=== PATIENT | male | born 1980 | race Two or more races ===

== ENCOUNTER 2017-11-24 01:47 | Emergency (ER) | payer SELFPAY ==
[2017-11-24] MEDS ORDERED: Ibuprofen TAB* 800 MG PO ONE (02:38)
[2017-11-24] MEDS ORDERED: Acetaminophen TAB* 325 MG PO ONE (02:38)
[2017-11-24] MEDS ORDERED: Oseltamivir CAP* 75 MG CAP PO ONE (03:21)
[2017-11-24] MEDS ORDERED: Oseltamivir CAP* 75 MG CAP ONE (03:22)
[2017-11-24 03:40] VITALS: BP 147/73
--- NOTE | 2017-11-24 06:16 | ED ---
Wes Archuleta Jason, scribed for Mariely Pickering MD on 11/24/17 at 0422 . Influenza-Like Illness - HPI Summary HPI Summary: This patient is a 37 year old M presenting to [facility] with a chief complaint of flu-like sx since 1 day ago. The patient rates the pain 10/10 in severity. Symptoms aggravated by nothing. Symptoms alleviated by nothing. Patient reports cough, fever, headache and myalgia. The patient includes that he took Tylenol. - History of Current Complaint Chief Complaint: EDFluSymptoms Time Seen by Provider: 11/24/17 02:17 Hx Obtained From: Patient Onset/Duration: Gradual Onset, Lasting Days - 1 day, Still Present Associated Signs & Symptoms: Fever, Myalgia, Cough, Headache - Allergy/Home Medications Allergies/Adverse Reactions: Allergies Allergy/AdvReac Type Severity Reaction Status Date / Time aspirin Allergy Swelling Verified 11/24/17 02:24 Of Face,Lips,& Throat PMH/Surg Hx/FS Hx/Imm Hx Previously Healthy: Yes Opthamlomology History: Denies: Hx Legally Blind EENT History: Denies: Hx Deafness Infectious Disease History: No Infectious Disease History: Denies: Traveled Outside the [place] in Last 30 Days - Family History Known Family History: Negative: Renal Disease, Blood Disorder - Social History Alcohol Use: None Substance Use Type: Reports: None Smoking Status (MU): Current Some Day Smoker Review of Systems Positive: Fever Positive: Cough Positive: Myalgia Positive: Headache All Other Systems Reviewed And Are Negative: Yes Physical Exam - Summary Physical Exam Summary: VITAL SIGNS: Reviewed. GENERAL: ~Patient is a well-developed and nourished male who is lying comfortable in the stretcher. Patient is not in any acute respiratory distress. HEAD AND FACE: No signs of trauma. No ecchymosis, hematomas or skull depressions. No sinus tenderness. EYES: PERRLA, EOMI x 2, No injected conjunctiva, no nystagmus. EARS: Hearing grossly intact. Ear canals and tympanic membranes are within normal limits. MOUTH: Oropharynx within normal limits. NECK: Supple, trachea is midline, no adenopathy, no JVD, no carotid bruit, no c- spine tenderness, neck with full ROM. CHEST: Symmetric, no tenderness at palpation LUNGS: Clear to auscultation bilaterally. No wheezing or crackles. CVS: Regular rate and rhythm, S1 and S2 present, no murmurs or gallops appreciated. ABDOMEN: Soft, non-tender. No signs of distention. No rebound no guarding, and no masses palpated. Bowel sounds are normal. EXTREMITIES: FROM in all major joints, no edema, no cyanosis or clubbing. NEURO: Alert and oriented x 3. No acute neurological deficits. Speech is normal and follows commands. SKIN: Dry and warm Triage Information Reviewed: Yes Vital Signs On Initial Exam: Initial Vitals Temp Pulse Resp BP Pulse Ox 99.9 F 93 16 161/82 98 11/24/17 01:52 11/24/17 01:52 11/24/17 01:52 11/24/17 01:52 11/24/17 01:52 Vital Signs Reviewed: Yes Diagnostics - Vital Signs Vital Signs Temp Pulse Resp BP Pulse Ox 11/24/17 03:38 99.9 F 86 20 147/73 98 11/24/17 01:52 99.9 F 93 16 161/82 98 - Laboratory Lab Results: Lab Results 11/24/17 Range/Units 02:26 Influenza A (Rapid) Negative (Negative) Influenza B (Rapid) Positive H (Negative) Lab Statement: Any lab studies that have been ordered have been reviewed, and results considered in the medical decision making process. Flu Symptom Course/Dx - Course Course Of Treatment: This patient is a 37 year old M presenting to [facility] with a chief complaint of flu-like sx since 1 day ago. The patient rates the pain 10/ 10 in severity. Symptoms aggravated by nothing. Symptoms alleviated by nothing. Patient reports cough, fever, headache and myalgia. The patient includes that he took Tylenol. In the ED course the patient was given acetaminophen, ibuprofen, and oseltamivir. Test results show that patient is positive for Influenza B. Assessment/Plan: Patient will be discharged with meidcation and follow up from PCP if symptoms worsen. The patient was advised to return to [facility] for any new or worsening symptoms. The patient is agreeable with this plan. dx of influenza B. - Diagnoses Provider Diagnoses: Influenza B Discharge - Discharge Plan Condition: Stable Disposition: HOME Prescriptions: Ibuprofen TAB* [Motrin TAB* 800 MG] 800 mg PO ONCE PRN #30 tab PRN Reason: Fever/Pain Oseltamivir CAP* [Tamiflu CAP*] 75 mg PO BID #10 cap Patient Education Materials: Influenza (ED) Forms: *Work Release Referrals: No Primary Care Phys,NOPCP [Primary Care Provider] - Additional Instructions: RETURN TO EMERGENCY DEPARTMENT FOR ANY NEW OR WORSENING SYMPTOMS The documentation as recorded by the Wes hanley Jason accurately reflects the service I personally performed and the decisions made by me, Mariely Pickering MD.
== END 2017-11-24 03:30 | disposition home or self-care (01) ==
LOC: ED 01:47
DX: J11.1 Influenza due to unidentified influenza virus with other respiratory manifestations (principal); F17.200 Nicotine dependence, unspecified, uncomplicated; Z88.6 Allergy status to analgesic agent
CPT/HCPCS: 87502; 99282; A9270-GY

== ENCOUNTER 2019-04-27 09:54 | Emergency (ER) | payer SELFPAY ==
--- NOTE | 2019-04-27 10:36 | ED ---
Throat Pain/Nasal Congestion - HPI Summary HPI Summary: A 39 y/o male presents to [facility] with a chief complaint of sore throat for the past 4 days. He also c/o headaches, body aches, joint pain and chills, but denies fevers or N/V for the past 4 days. He says that he feels better today but still has his sore throat. At triage he rated his pain as a 7/10 in severity. He denies any PMHx or SHx. He says that he smokes, but denies alcohol or drug use. FHx of DM and HTN. - History of Current Complaint Chief Complaint: EDUpperRespComplaint Time Seen by Provider: 04/27/19 10:24 Hx Obtained From: Patient Onset/Duration: Sudden Onset, Lasting Days, Still Present Severity: Severe Associated Signs And Symptoms: Positive: Negative Cough: None - Allergies/Home Medications Allergies/Adverse Reactions: Allergies Allergy/AdvReac Type Severity Reaction Status Date / Time aspirin Allergy Severe Swelling Verified 04/27/19 10:31 Of Face,Lips,& Throat Home Medications: Home Medications NK [No Home Medications Reported] 04/27/19 [History Confirmed 04/27/19] PMH/Surg Hx/FS Hx/Imm Hx Endocrine/Hematology History: Denies: Hx Diabetes Cardiovascular History: Denies: Hx Hypercholesterolemia, Hx Hypertension Sensory History: Denies: Hx Legally Blind, Hx Deafness Opthamlomology History: Denies: Hx Legally Blind - Surgical History Surgical History: None Infectious Disease History: No Infectious Disease History: Denies: Traveled Outside the [place] in Last 30 Days - Family History Known Family History: Positive: Hypertension, Diabetes Negative: Renal Disease, Blood Disorder - Social History Alcohol Use: None Substance Use Type: Reports: None Smoking Status (MU): Current Some Day Smoker Review of Systems Positive: Chills. Negative: Fever Positive: Sore Throat Negative: Vomiting, Nausea Positive: Other - positive: body aches, joint pain Positive: Headache All Other Systems Reviewed And Are Negative: Yes Physical Exam - Summary Physical Exam Summary: VITAL SIGNS: Reviewed. GENERAL: Patient is a well-developed and nourished MALE who is lying comfortable in the stretcher. Patient is not in any acute respiratory distress. HEAD AND FACE: No signs of trauma. No ecchymosis, hematomas or skull depressions. No sinus tenderness. EYES: PERRLA, EOMI x 2, No injected conjunctiva, no nystagmus. EARS: Hearing grossly intact. Ear canals and tympanic membranes are within normal limits. MOUTH: Pharyngeal erythema. NECK: Supple, trachea is midline, no adenopathy, no JVD, no carotid bruit, no c- spine tenderness, neck with full ROM. CHEST: Symmetric, no tenderness at palpation. LUNGS: Clear to auscultation bilaterally. No wheezing or crackles. CVS: Regular rate and rhythm, S1 and S2 present, no murmurs or gallops appreciated. ABDOMEN: Soft, non-tender. No signs of distention. No rebound, no guarding, and no masses palpated. Bowel sounds are normal. EXTREMITIES: FROM in all major joints, no edema, no cyanosis or clubbing. NEURO: Alert and oriented x 3. No acute neurological deficits. Speech is normal and follows commands. SKIN: Dry and warm. Triage Information Reviewed: Yes Vital Signs On Initial Exam: Initial Vitals Temp Pulse Resp BP Pulse Ox 99.0 F 76 16 142/105 97 04/27/19 09:59 04/27/19 09:59 04/27/19 09:59 04/27/19 09:59 04/27/19 09:59 Vital Signs Reviewed: Yes Diagnostics - Vital Signs Vital Signs Temp Pulse Resp BP Pulse Ox 04/27/19 09:59 99.0 F 76 16 142/105 97 - Laboratory Lab Statement: Any lab studies that have been ordered have been reviewed, and results considered in the medical decision making process. Re-Evaluation - Re-Evaluation First Eval Re-Evaluation Time: 11:24 Change: Improved Comment: Pt is feeling good. EENT Course/Dx - Course Assessment/Plan: A 39 y/o male presents to [facility] with a chief complaint of sore throat for the past 4 days. He also c/o headaches, body aches, joint pain and chills, but denies fevers or N/V for the past 4 days. He says that he feels better today but still has his sore throat. At triage he rated his pain as a 7/ 10 in severity. He denies any PMHx or SHx. He says that he smokes, but denies alcohol or drug use. FHx of DM and HTN. Rapid strep is negative. In the ED course the patient was given Tylenol since the patient is allergic to aspirin. I believe the patient has a viral pharyngitis. During the physical exam the patient doesnt have any meningeal signs, no photophobia and no neck pain. Therefore the patient will be discharged home with follow-up with PCP. Patient is hemodynamically stable alert and oriented 3. - Diagnoses Provider Diagnoses: Pharyngitis Discharge - Sign-Out/Discharge Documenting (check all that apply): Patient Departure - DC Patient Received Moderate/Deep Sedation with Procedure: No - Discharge Plan Condition: Stable Disposition: HOME Patient Education Materials: Pharyngitis (ED) Referrals: [facility] [Outside] (2-3 days) Additional Instructions: FOLLOW UP WITH YOUR PRIMARY CARE PROVIDER WITHIN 2-3 DAYS. RETURN TO THE ED FOR ANY WORSENING OR NEW SYMPTOMS. - Attestation Statements Document Initiated by Scribe: Yes Documenting Scribe: Jorge Bowers Provider For Whom Scribe is Documenting (Include Credential): Tyrese Yost MD Scribe Attestation: I, Jorge Bowers, scribed for Tyrese Yost MD on 04/27/19 at 1319. Status of Scribe Document: Ready
[2019-04-27 11:07] LABS: Rapid Strep Molecular Negative (Negative)
[2019-04-27] MEDS ORDERED: NS 0.9% 1000 ML** 1,000 ML IV ONE (11:12)
[2019-04-27] MEDS ORDERED: Acetaminophen TAB* 325 MG PO ONE (11:15)
[2019-04-27 11:37] VITALS: BP 136/86
== END 2019-04-27 11:36 | disposition home or self-care (01) ==
LOC: ED 09:54
DX: J02.9 Acute pharyngitis, unspecified (principal); R51 Headache; Z72.0 Tobacco use
CPT/HCPCS: 87651; 99282